=== PATIENT | male | born 1985 | race Caucasian/White ===

== ENCOUNTER 2019-04-14 20:21 | Emergency (ER) | payer OTHER ==
--- NOTE | 2019-04-14 21:28 | ED Physician Documentation ---
PD HPI OPHTHO - Stated complaint Stated Complaint: L EYE PAIN/FOREIGN BODY - Chief complaint Chief Complaint: Heent - History obtained from History obtained from: Patient - History of Present Illness Timing - onset: Today Timing - duration: Hours Timing - details: Abrupt onset Location: Left Associated symptoms: FB sensation, Other (He can see a foreign body.). 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 He was in his wood shop today was not doing anything but it felt the left eye was a little irritated after he was in there is of course he rubbed the eye and is just gotten progressively more irritated. He has not noted any change in his vision. He does not wear corrective lenses. He is in the [facility] and they do keep their vaccines updated. Review of Systems Eyes: reports: Irritation, Other (He can see a foreign body). denies: Loss of vision, Discharge PD PAST MEDICAL HISTORY - Past Medical History Past Medical History: Yes - Past Surgical History Past Surgical History: Yes General: Other - Present Medications Home Medications: Ambulatory Orders Medication Instructions Recorded Confirmed Erythromycin Base [Erythromycin 1 gm OP Q4HR #1 tube 04/14/19 Ophthalmic Ointment] - Allergies Allergies/Adverse Reactions: Allergies Allergy/AdvReac Type Severity Reaction Status Date / Time No Known Drug Allergies Allergy Verified 04/14/19 20:25 - Social History Does the pt smoke?: No Smoking Status: Former smoker Does the pt drink ETOH?: Yes ETOH Use: Beer Does the pt have substance abuse?: No - Immunizations Immunizations are current?: Yes - POLST Patient has POLST: No PD ED PE NORMAL - General General: Alert and oriented X 3, No acute distress, Well developed/nourished - Respiratory Respiratory: No respiratory distress PD ED PE EXPANDED - Eyes Eyes: Visual acuity - see nn, PERRL, Normal accommodation, EOMI, Nl conjunctiva/sclera, Corneal FB (At the 6 o'clock position just out of the field of vision in the left eye.). No: Subconj hemorrhage, Scleral icterus, Fluorescein uptake, Hyphema Results - Vitals Vitals: Oxygen O2 Source Room air Procedures - FB removal FB location: Other (Left cornea) FB removal preparation: Local anesthesia-specify (Ophthalmic tetracaine) Removal method: Other (Op sober) FB removal aftercare: No complications, Patient tolerated well PD MEDICAL DECISION MAKING - ED course ED course: This foreign body had actually appearance of a rust ring. After the Opthobur was used a Alexander lens was placed and the eye was irrigated with normal saline. He tolerated this well. We will prescribe ophthalmic ointment and recheck with ophthalmology tomorrow. Departure - Departure Disposition: 01 Home, Self Care Clinical Impression: Corneal foreign body with residual material Qualifiers: Encounter type: initial encounter Laterality: left Qualified Code(s): T15.02XA - Foreign body in cornea, left eye, initial encounter Condition: Good Instructions: ED Foreign Body Cornea W Rust Ring Follow-Up: NATALIE Sheldon [Provider Group] Prescriptions: Erythromycin Base [Erythromycin Ophthalmic Ointment] 1 gm OP Q4HR #1 tube Comments: Apply the ophthalmic ointment to the left eye about 1/2 inch ribbon every 3-4 hours. Follow-up with the system dispatcher in 24 hours for recheck and discussion of the residual rust ring. Discharge Date/Time: 04/14/19 22:49
[2019-04-14] MEDS ORDERED: TETRACAINE 0.5% OPHTH DROPS 4 ML LEFTEYE ONE (21:44)
[2019-04-14] MEDS ORDERED: TETRACAINE 0.5% OPHTH DROPS 4 ML ONE (22:18)
[2019-04-14] MEDS ORDERED: SODIUM CHLORIDE 0.9% 500 ML IR ONE (22:19)
[2019-04-14] MEDS ORDERED: ERYTHROMYCIN OPHTH OINT 1 GM TUBE LEFTEYE STA (22:39)
[2019-04-14] MEDS ORDERED: IBUPROFEN 600 MG TABLET PO STA (22:39)
[2019-04-14 22:49] VITALS: BP 135/80
== END 2019-04-14 22:49 | disposition home or self-care (01) ==
LOC: ED 20:21
DX: T15.02XA Foreign body in cornea, left eye, initial encounter (principal); X58.XXXA Exposure to other specified factors, initial encounter; Y92.69 Other specified industrial and construction area as the place of occurrence of the external cause; Z87.891 Personal history of nicotine dependence
CPT/HCPCS: 65220; 99282; A9270; J3490